=== PATIENT | female | born 1945 | race Hispanic/Latino ===

== ENCOUNTER 2019-03-21 11:03 | Day surgery (SDC) | payer MEDICARE ==
[~2019-03-21 11:03] MED LIST: APRACLONIDINE 1% OPHTH SOLN DROPERETTE ONE; PHENYLEPHRINE 10% OPHTH SOLN 5 ML ONE; TROPICAMIDE 1% OPHTH SOLN 3 ML ONE
[2019-03-21 11:26] VITALS: BP 170/85
[2019-03-21] MEDS ORDERED: APRACLONIDINE 1% OPHTH SOLN DROPERETTE OD ONE (11:26)
[2019-03-21] MEDS ORDERED: TROPICAMIDE 1% OPHTH SOLN 3 ML OD ONE (11:28)
[2019-03-21] MEDS ORDERED: PHENYLEPHRINE 10% OPHTH SOLN 5 ML OD ONE (11:29)
== END 2019-03-21 12:05 | disposition home or self-care (01) ==
LOC: OR 11:03
PROVIDERS: ATTEND Specialist
DX: E11.36 Type 2 diabetes mellitus with diabetic cataract (principal); H26.491 Other secondary cataract, right eye; E78.00 Pure hypercholesterolemia, unspecified; I48.91 Unspecified atrial fibrillation; I10 Essential (primary) hypertension; J44.9 Chronic obstructive pulmonary disease, unspecified; K21.9 Gastro-esophageal reflux disease without esophagitis; M19.90 Unspecified osteoarthritis, unspecified site; Z72.89 Other problems related to lifestyle; Z85.89 Personal history of malignant neoplasm of other organs and systems; Z87.891 Personal history of nicotine dependence; Z98.41 Cataract extraction status, right eye; Z98.42 Cataract extraction status, left eye; Z90.710 Acquired absence of both cervix and uterus; Z98.890 Other specified postprocedural states; Z86.73 Personal history of transient ischemic attack (TIA), and cerebral infarction without residual deficits
CPT/HCPCS: 82962

== ENCOUNTER 2019-03-28 11:16 | Day surgery (SDC) | payer MEDICARE ==
[~2019-03-28 11:16] MED LIST changes: -APRACLONIDINE 1% OPHTH SOLN DROPERETTE ONE; +IOPIDINE ONE; +MYDRIACYL ONE; +NEOFRIN ONE; -PHENYLEPHRINE 10% OPHTH SOLN 5 ML ONE; -TROPICAMIDE 1% OPHTH SOLN 3 ML ONE
[2019-03-28] MEDS ORDERED: MYDRIACYL OS ONE (11:40)
[2019-03-28] MEDS ORDERED: IOPIDINE OS ONE ×2 (11:40→12:33)
[2019-03-28] MEDS ORDERED: NEOFRIN OS ONE (11:40)
[2019-03-28 12:20] VITALS: BP 139/62
== END 2019-03-28 12:36 | disposition home or self-care (01) ==
LOC: OR 11:16
PROVIDERS: ATTEND Specialist
DX: E11.36 Type 2 diabetes mellitus with diabetic cataract (principal); H26.492 Other secondary cataract, left eye; E11.42 Type 2 diabetes mellitus with diabetic polyneuropathy; G62.9 Polyneuropathy, unspecified; E78.00 Pure hypercholesterolemia, unspecified; I48.91 Unspecified atrial fibrillation; I10 Essential (primary) hypertension; J44.9 Chronic obstructive pulmonary disease, unspecified; K21.9 Gastro-esophageal reflux disease without esophagitis; M19.90 Unspecified osteoarthritis, unspecified site; Z72.89 Other problems related to lifestyle; Z85.89 Personal history of malignant neoplasm of other organs and systems; Z90.710 Acquired absence of both cervix and uterus; Z87.891 Personal history of nicotine dependence; Z98.41 Cataract extraction status, right eye; Z98.42 Cataract extraction status, left eye; Z98.890 Other specified postprocedural states; Z86.73 Personal history of transient ischemic attack (TIA), and cerebral infarction without residual deficits
CPT/HCPCS: 82962